=== PATIENT | male | born 1935 | race Caucasian/White ===

== ENCOUNTER → 2018-06-21 | Outpatient (CLI) | payer MEDICARE, OTHER ==
[~2018-06-21] MED LIST: REGADENOSON INJ 0.4 MG/5 ML DISP.SYRIN IV ONE
--- NOTE | 2018-06-23 00:05 | XCELERA REPORT ---
[address] [address] Transthoracic Echocardiogram Report Name: PATRICIO RIGGINS Age: 83 yrs Gender: Male : 1935 Patient Status: Outpatient Patient Location: RAD Study Date: 06/21/2018 10:44 AM Procedure: A two-dimensional transthoracic echocardiogram with color flow and Doppler was performed. Study Quality: Fair. Reason For Study: MURMUR History: MURMUR / Pre-OP. Ordering Physician: VANESSA MAGDALENO Performed By: Sandrine Gómez Interpretation Summary The left ventricle is normal in size. There is mild concentric left ventricular hypertrophy. LV EF is > than 60% Left ventricular systolic function is low normal. Doppler measurements suggest impaired left ventricular relaxation, which is associated with grade I/IV or mild diastolic dysfunction Mild mid and basal inferior wall hypokinesis.Rest of LV lincoln contract normally. There is no thrombus. The right ventricle is normal in size and function. The right atrium is normal. The left atrium is borderline dilated. There is no evidence of mitral valve prolapse. There is no vegetation seen on the mitral valve. There is no mitral valve stenosis. There is a mild amount of mitral regurgitation There is no aortic valvular vegetation. There is no aortic valve stenosis There is no LVOT obstruction. No aortic regurgitation is present. There is no tricuspid stenosis. There is a trace amount of tricuspid regurgitation There is mild pulmonary hypertension by echo RVSP is 35 mm of Hg , with RA mean of 10. There is no pulmonic valvular stenosis. There is no pulmonic valvular regurgitation. The aortic root is mildly dilated The inferior vena cava was not well visualized There is no pericardial effusion. MMode/2D Measurements & Calculations RVDd: 3.3 cm LVIDd: 5.7 cm FS: 37.2 % Ao root diam: 3.9 cm IVSd: 1.3 cm LVIDs: 3.6 cm EDV(Teich): 157.4 ml Ao root area: 11.7 cm2 LVPWd: 1.4 cm ESV(Teich): 52.8 ml EF(Teich): 66.5 % Doppler Measurements & Calculations MV E max kai: MV dec slope: Ao V2 max: LV V1 max P.1 cm/sec 107.6 cm/sec 3.1 mmHg MV A max kai: 247.0 cm/sec2 Ao max PG: LV V1 max: 89.2 cm/sec MV dec time: 0.24 sec4.6 mmHg 88.1 cm/sec MV E/A: 0.67 PA V2 max: TR max kai: 88.1 cm/sec 243.9 cm/sec PA max P.1 mmHg TR max P.8 mmHg Left Ventricle The left ventricle is normal in size. There is mild concentric left ventricular hypertrophy. LV EF is > than 60%. Left ventricular systolic function is low normal. Doppler measurements suggest impaired left ventricular relaxation, which is associated with grade I/IV or mild diastolic dysfunction. Mild mid and basal inferior wall hypokinesis.Rest of LV lincoln contract normally. There is no thrombus. Right Ventricle The right ventricle is normal in size and function. Atria The right atrium is normal. The left atrium is borderline dilated. Mitral Valve There is no evidence of mitral valve prolapse. There is no vegetation seen on the mitral valve. There is no mitral valve stenosis. There is a mild amount of mitral regurgitation. Aortic Valve There is no aortic valvular vegetation. There is no aortic valve stenosis. There is no LVOT obstruction. No aortic regurgitation is present. Tricuspid Valve There is no tricuspid stenosis. There is a trace amount of tricuspid regurgitation. There is mild pulmonary hypertension by echo. RVSP is 35 mm of Hg , with RA mean of 10. Pulmonic Valve There is no pulmonic valvular stenosis. There is no pulmonic valvular regurgitation. 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 The inferior vena cava was not well visualized. Effusions There is no pericardial effusion. : VANESSA MAGDALENO > Vanessa Magdaleno
--- NOTE | 2018-06-23 01:11 | DRAGON STRESS TEST REPORT ---
Intravenous Lexiscan Cardiolite stress test using single photon emmision computerized tomography. Date of procedure: 06/21/2018. Ordering Provider: Dr. Vanessa Turner. Patient's status: Out Patient Indication: Chest pa coronary artery disease, history of coronary stents, and preoperative cardiac risk assessment coronary risk factors: Age, hypertension, and dyslipidemia. Resting EKG: Sinus Rhythm. T inversion in leads III and aVF Stress EKG: No changes of ischemia. Reason for termination: Protocol. The patient no chest pain or discomfort, and there were no arrhythmias seen. Conclusions: Normal EKG and hemodynamic response to IV Lexiscan. Nuclear data: At rest the patient was given millicuries of technetium 99m sestamibi injected intravenously. As per protocol rest non gated SPECT images were obtained. Subsequently the patient was given intravenous Lexiscan at a dose of 0.4 mg in 5 mL intravenously, followed by flush with normal saline. Subsequently the stress dose of 33.1 millicuries of technetium 99m sestamibi was injected intravenously. As per protocol stress gated images were obtained. Nuclear interpretation: Review of images showed that there is a perfusion defect involving the inferior wall in both rest and stress images. The there is stress images show minimally increased perfusion defect compared to the rest images. This inferior wall has decreased motion contraction and thickening by gated study, and head consistent with prior myocardial infarction. The rest of the segments of the myocardium had normal perfusion at rest, and normal perfusion post stress with IV Lexiscan. The rest of the segments of the myocardium had normal motion, contraction, and thickening by gated study. T. I D. ratio was normal at 1.05. There is no transient ischemic calcification of the left ventricle. Computer read rest, and stress left ventricular ejection fraction were 48 %, and 37 %, respectively. Visually both the stress and rest ejection fractions were normal, and greater than 55%. Conclusion: 1. There is scintigraphic evidence of Lexiscan induced minimal ángel-infarct myocardial ischemia in the inferior wall. 2. There is scintigraphic evidence of myocardial infarction/scar involving the inferior wall. Recommendations: 1. Check echo for LV ejection fraction correlation. 2. Aggressive risk factor modification, and treating the underlying co- morbidities. [facility]AT[facility] CENTERАлександр
== END ==
LOC: RAD 07:50
PROVIDERS: ATTEND Specialist
DX: Z01.810 Encounter for preprocedural cardiovascular examination (principal); I25.10 Atherosclerotic heart disease of native coronary artery without angina pectoris; R07.9 Chest pain, unspecified; I10 Essential (primary) hypertension; E78.5 Hyperlipidemia, unspecified
CPT/HCPCS: 93306; 93017; 78452; A9500; J2785; Q9969

== ENCOUNTER → 2020-03-04 | Outpatient (CLI) | payer MEDICARE, OTHER ==
--- NOTE | 2020-03-04 12:04 | RADIOLOGY REPORT (SQ) ---
EXAM DESCRIPTION: BARIUM SWALLOW ESOPHAGUS IMAGES COMPLETED DATE/TIME: 03/04/2020 11:26 am REASON FOR STUDY: R13.10 DYSPHAGIA, UNSPECIFIED R13.10 DYSPHAGIA, UNSPECIFIED COMPARISON: None. TECHNIQUE: Under fluoroscopic guidance, patient ingested effervescent granules followed by thick and thin barium. Fluoroscopic spot images and routine radiographic images acquired and stored on PACS. 12 MM BARIUM TABLET GIVEN: Yes. Slight delay in the distal esophagus LIMITATIONS: None. FLUOROSCOPY TIME: FLUORO TIME: 2.4 minutes of fluoroscopy was used. 20 images saved to PACS. FINDINGS: NEUROMUSCULAR COORDINATION OF SWALLOW: Normal. No aspiration. ESOPHAGEAL MOTILITY: There is stasis of barium within the esophagus due to focal narrowing distally. Mild tertiary contractions are identified. ESOPHAGEAL MUCOSA: Proximal esophagus is normal. Focal area narrowing of the distal esophagus proxim al to the GE junction at causes delay in passage 12 mm barium tablet for approximately 3 minutes. GASTRO-ESOPHAGEAL JUNCTION: Hiatal hernia with mild gastroesophageal reflux. NON-GI TRACT STRUCTURES: No significant finding. OTHER: No other significant finding. IMPRESSION: DISTAL ESOPHAGEAL STRICTURE CAUSING SLIGHT DELAY IN PASSAGE OF THE 12 MM BARIUM TABLET. HIATAL HERNIA WITH MILD GASTROESOPHAGEAL REFLUX. RECOMMENDATION: ENDOSCOPY FOR FURTHER EVALUATION OF THE DISTAL ESOPHAGEAL STRICTURE COMMENT: Quality ID [id number]: Final reports for procedures using fluoroscopy that document radiation exp osure indices, or exposure time and number of fluorographic images (if radiation exposure indices are not available) TECHNICAL DOCUMENTATION: JOB ID: [id number] 2010 [employer]- All Rights Reserved Reading location - IP/workstation name: [email or web address] [id number]
== END ==
LOC: RAD 09:16
PROVIDERS: ATTEND Internal Medicine Gastroenterology
DX: R13.10 Dysphagia, unspecified (principal)
CPT/HCPCS: 74220